=== PATIENT | male | born 1990 | race Caucasian/White ===

== ENCOUNTER 2023-06-03 09:20 | Emergency (ER) | payer MEDICAID ==
[~2023-06-03] VITALS: Ht 172.7 cm; Wt 73.0 kg
[2023-06-03 09:25] VITALS: BP 137/76; RESP 20; TEMP 97.5; O2SAT 96
[2023-06-03 09:28] VITALS: PULSE 88
[2023-06-03] MEDS ORDERED: PSEU120T56 MT (09:49)
== END 2023-06-03 10:05 | disposition home or self-care (01) ==
LOC: ER 09:20
DX: J06.9 Acute upper respiratory infection, unspecified (principal)
CPT/HCPCS: 99281